=== PATIENT | male | born 1960 | race Caucasian/White ===

== ENCOUNTER 2022-10-15 09:40 | Day surgery (SDC) | payer BC ==
[~2022-10-15 09:40] MED LIST: Acetaminophen 1,000 MG in Premix Bag 1 BAG IV SCH; Glycopyrrolate 0.2 MG/ML SDV ONE; Lactated Ringers 1,000 ML IV SCH; Ondansetron 4 MG/2 ML SDV ONE; Propofol 200 MG/20 ML SDV ONE; ceFAZolin 2 GM in Premix Bag 1 BAG IV SCH
[2022-10-15] MEDS ORDERED: Propofol 200 MG/20 ML SDV ONE (10:53)
[2022-10-15] MEDS ORDERED: fentaNYL 100 MCG/2 ML SDV ONE (10:55)
[2022-10-15] MEDS ORDERED: Midazolam 1 MG/ML 2 ML SDV ONE (10:55)
[2022-10-15] MEDS ORDERED: Ketamine 500 mg/10 ML MDV ONE (10:55)
[2022-10-15] MEDS ORDERED: Bupivacaine 0.25% 30 ML SDV ONE (11:10)
[2022-10-15] MEDS ORDERED: Bupivacaine 25%/EPINEPHrine/PF 0 ML ONE (11:10)
[2022-10-15] MEDS ORDERED: Bupivacaine 0.5% 30 ML SDV ONE (11:13)
[2022-10-15] MEDS ORDERED: Lidocaine 2% 5 ML SDV ONE (11:13)
[2022-10-15] MEDS ORDERED: Ondansetron 4 MG/2 ML SDV ONE (11:56)
[2022-10-15] MEDS ORDERED: Glycopyrrolate 0.2 MG/ML SDV ONE (11:56)
[2022-10-15] MEDS ORDERED: ePHEDrine 50 MG/ML SDV ONE (12:17)
== END 2022-10-15 13:58 | disposition home or self-care (01) ==
LOC: MW.SDS 09:40
PROVIDERS: ATTEND Surgery
DX: D17.1 Benign lipomatous neoplasm of skin and subcutaneous tissue of trunk (principal); F41.9 Anxiety disorder, unspecified; N40.0 Benign prostatic hyperplasia without lower urinary tract symptoms; F32.A Depression, unspecified; E29.1 Testicular hypofunction; G47.33 Obstructive sleep apnea (adult) (pediatric); F90.9 Attention-deficit hyperactivity disorder, unspecified type; E66.9 Obesity, unspecified; M54.2 Cervicalgia; G89.29 Other chronic pain; Z98.890 Other specified postprocedural states; Z79.899 Other long term (current) drug therapy; Z87.891 Personal history of nicotine dependence; Z68.31 Body mass index [BMI] 31.0-31.9, adult
CPT/HCPCS: 11606; 12032; J2250; J2405; J2704; J3010; J3490; J7120; 00300